=== PATIENT | male | born 1970 | race Caucasian/White ===

== ENCOUNTER 2022-08-31 01:16 | Emergency (ER) | payer MEDICAID ==
[2022-08-31] MEDS ORDERED: Sodium Chloride 0.9% 10 ML Syringe FLUSH PRN (01:46)
[2022-08-31] MEDS ORDERED: Ondansetron 4 MG/2 ML SDV IVPUSH ONE (01:46)
[2022-08-31 01:53] LABS: BASOPHILS ABSOLUTE AUTO 0.04 K/uL (0.00-0.10); BASOPHILS PERCENT AUTO 0.4 % (0.1-1.3); EOSINOPHILS ABSOLUTE AUTO 0.14 K/uL (0.00-0.40); EOSINOPHILS PERCENT AUTO 1.3 % (0.0-5.4); HEMATOCRIT 47.7 % (38.4-49.7); HEMOGLOBIN 16.6 g/dL (12.9-16.9); IMMATURE GRAN ABSOLUTE AUTO 0.04 K/uL (0.00-0.23); IMMATURE GRAN PERCENT AUTO 0.4 % (0.0-0.7); LYMPHOCYTES PERCENT AUTO 15.1 % (11.4-47.7); MEAN CORPUSCULAR HEMOGLOBIN 29.5 pg (31.6-35.5); MEAN CORPUSCULAR HGB CONC 34.8 g/dL (31.6-35.5); MEAN CORPUSCULAR VOLUME 84.9 fL (81.4-99.0); MONOCYTES ABSOLUTE AUTO 0.87 K/uL (0.20-0.90); MONOCYTES PERCENT AUTO 8.2 % (3.3-12.6); NEUTROPHILS ABSOLUTE AUTO 7.93 K/uL (1.0-7.6); NEUTROPHILS PERCENT AUTO 74.6 % (40.0-78.1); PLATELET COUNT,PLT 272 K/uL (130-375); RED BLOOD CELL COUNT 5.62 M/uL (4.14-5.76); WHITE BLOOD CELL COUNT,WBC 10.6 K/uL (3.2-11.0)
[2022-08-31] MEDS: Sodium Chloride 0.9% 1,000 ML IV SCH ×2 (01:55→03:02)
[2022-08-31 02:13] LABS: ALANINE AMINOTRANSFERASE,ALT 58 U/L (12-78); ALKALINE PHOSPHATASE 107 U/L (46-116); ASPARTATE AMNIOTRANSFERASE,AST 26 U/L (15-37); BILIRUBIN TOTAL 0.7 mg/dL (0.2-1.0); BLOOD UREA NITROGEN,BUN 19 mg/dL (7-18); C-REACTIVE PROTEIN 0.62 mg/dL (0.0-0.3); CALCIUM 9.9 mg/dL (8.5-10.1); CARBON DIOXIDE,CO2 25 mmol/L (21-32); CHLORIDE,CL 98 mmol/L (100-108); CREATININE 2.4 mg/dL (0.8-1.3); EST CRCL DRUG DOSING (CG) 39.52 mL/min; ESTIMATED GFR 32 mL/min (>60); GLUCOSE RANDOM 395 mg/dL (74-106); POTASSIUM,K 4.2 mmol/L (3.6-5.2); PROTEIN TOTAL,TP 8.2 g/dL (6.4-8.2); SODIUM,NA 132 mmol/L (140-148)
[2022-08-31 02:14] LABS: ANION GAP 13.2 mmol/L (5.0-14.0)
[2022-08-31 02:32] LABS: BASE EXCESS VENOUS -4.9 mm/L; BICARBONATE,VENOUS 22.3 mmol/L; CARBOXYHEMOGLOBIN 1.4 % (0.0-1.6); METHEMOGLOBIN 1.1 %; O2 SATURATION VENOUS 41.6; OXYHEMOGLOBIN 40.6 %; PCO2 VENOUS 50.7 mm/Hg; PH,VENOUS 7.265 (7.350-7.450); TOTAL HEMOGLOBIN 16.2 g/dL (13.5-18.0)
[2022-08-31 02:36] LABS: PO2 VENOUS 29.7 mm/Hg
[2022-08-31] MEDS ORDERED: Insulin Regular, Human 100 Units/ML 3 ML Vial IVPUSH ONE (02:55)
[2022-08-31] MEDS ORDERED: Glucagon,Human Recombinant 1 MG Vial IM PRN (02:55)
[2022-08-31] MEDS ORDERED: 50% Dextrose in Water 50 ML Syringe IVPUSH PRN (02:55)
[2022-08-31] MEDS ORDERED: Sodium Chloride 0.9% 1,000 ML IV SCH (03:00)
== END 2022-08-31 04:25 | disposition home or self-care (01) ==
LOC: JP.ED 01:16
DX: A08.4 Viral intestinal infection, unspecified (principal); E86.0 Dehydration; E11.65 Type 2 diabetes mellitus with hyperglycemia; N17.9 Acute kidney failure, unspecified; Z91.013 Allergy to seafood; Z91.048 Other nonmedicinal substance allergy status; Z88.8 Allergy status to other drugs, medicaments and biological substances; Z79.82 Long term (current) use of aspirin
CPT/HCPCS: 36415; 80053; 82009; 82803; 85025; 86140; 96361; 96374; 99284; J1815; J2405; J3490; J7030

== ENCOUNTER 2022-09-15 20:04 | Emergency (ER) | payer MEDICAID ==
[2022-09-15] MEDS ORDERED: methylPREDNISolone Sodium Succinate 125 MG/2 ML SDV IVPUSH ONE (20:13)
[2022-09-15] MEDS ORDERED: EPINEPHrine 1 MG/ML SDV IM ONE (20:13)
[2022-09-15] MEDS ORDERED: diphenhydrAMINE 50 MG/ML SDV IVPUSH ONE (20:13)
== END 2022-09-15 23:29 | disposition home or self-care (01) ==
LOC: JP.ED 20:04
DX: T63.441A Toxic effect of venom of bees, accidental (unintentional), initial encounter (principal); E11.9 Type 2 diabetes mellitus without complications; K21.9 Gastro-esophageal reflux disease without esophagitis; Z79.4 Long term (current) use of insulin; Z79.84 Long term (current) use of oral hypoglycemic drugs; Z79.899 Other long term (current) drug therapy; Z79.82 Long term (current) use of aspirin; Z91.013 Allergy to seafood; Z91.048 Other nonmedicinal substance allergy status
CPT/HCPCS: 96372; 96374; 96375; 99282; J0171; J1200; J2930

== ENCOUNTER 2022-12-13 20:58 | Emergency (ER) | payer MEDICAID | END 2022-12-13 23:48 | disposition home or self-care (01) | LOC: JP.ED 20:58 | DX: S90.822A Blister (nonthermal), left foot, initial encounter (principal); E11.9 Type 2 diabetes mellitus without complications; Z91.038 Other insect allergy status; Z91.013 Allergy to seafood; Z91.048 Other nonmedicinal substance allergy status; Z79.82 Long term (current) use of aspirin; Z79.899 Other long term (current) drug therapy; Z79.4 Long term (current) use of insulin; Z79.84 Long term (current) use of oral hypoglycemic drugs; X58.XXXA Exposure to other specified factors, initial encounter | CPT/HCPCS: 99282 ==

== ENCOUNTER 2023-12-19 09:22 | Emergency (ER) | payer MEDICARE, MEDICAID ==
[2023-12-19 10:34] LABS: BASOPHILS ABSOLUTE AUTO 0.03 K/uL (0.00-0.10); BASOPHILS PERCENT AUTO 0.4 % (0.1-1.3); EOSINOPHILS PERCENT AUTO 4.2 % (0.0-5.4); HEMOGLOBIN 14.7 g/dL (12.9-16.9); IMMATURE GRAN ABSOLUTE AUTO 0.02 K/uL (0.00-0.23); IMMATURE GRAN PERCENT AUTO 0.3 % (0.0-0.7); LYMPHOCYTES ABSOLUTE AUTO 1.71 K/uL (0.8-3.3); LYMPHOCYTES PERCENT AUTO 23.9 % (11.4-47.7); MEAN CORPUSCULAR HEMOGLOBIN 30.4 pg (31.6-35.5); MEAN CORPUSCULAR HGB CONC 34.2 g/dL (31.6-35.5); MONOCYTES ABSOLUTE AUTO 0.57 K/uL (0.20-0.90); NEUTROPHILS ABSOLUTE AUTO 4.51 K/uL (1.0-7.6); NEUTROPHILS PERCENT AUTO 63.2 % (40.0-78.1); PLATELET COUNT,PLT 199 K/uL (130-375); RED BLOOD CELL COUNT 4.83 M/uL (4.14-5.76); WHITE BLOOD CELL COUNT,WBC 7.1 K/uL (3.2-11.0)
[2023-12-19 10:51] LABS: ANION GAP 7.8 mmol/L (5.0-14.0); CALCIUM 9.5 mg/dL (8.5-10.1); CREATININE 1.1 mg/dL (0.8-1.3); EST CRCL DRUG DOSING (CG) 85.24 mL/min; POTASSIUM,K 4.3 mmol/L (3.6-5.2)
== END 2023-12-19 12:03 | disposition home or self-care (01) ==
LOC: JP.ED 09:22
DX: H53.143 Visual discomfort, bilateral (principal); I10 Essential (primary) hypertension; E78.00 Pure hypercholesterolemia, unspecified; K21.9 Gastro-esophageal reflux disease without esophagitis; E11.9 Type 2 diabetes mellitus without complications; Z79.899 Other long term (current) drug therapy; Z79.84 Long term (current) use of oral hypoglycemic drugs; Z79.4 Long term (current) use of insulin; Z79.82 Long term (current) use of aspirin; Z91.013 Allergy to seafood; Z91.038 Other insect allergy status; Z91.048 Other nonmedicinal substance allergy status; Z88.8 Allergy status to other drugs, medicaments and biological substances
CPT/HCPCS: 36415; 80048; 83605; 85025; 99284

== ENCOUNTER 2024-03-28 04:22 | Emergency (ER) | payer MEDICARE, MEDICAID ==
[2024-03-28] MEDS: Ketorolac 15 MG/ML SDV IVPUSH ONE (04:35)
[2024-03-28] MEDS: Ondansetron 4 MG/2 ML SDV IVPUSH ONE (04:35)
[2024-03-28] MEDS: Sodium Chloride 0.9% 1,000 ML IV ONE ×2 (04:36→06:02)
[2024-03-28 04:41] LABS: BASOPHILS PERCENT AUTO 0.2 % (0.1-1.3); EOSINOPHILS ABSOLUTE AUTO 0.12 K/uL (0.00-0.40); EOSINOPHILS PERCENT AUTO 1.4 % (0.0-5.4); HEMOGLOBIN 16.4 g/dL (12.9-16.9); IMMATURE GRAN ABSOLUTE AUTO 0.03 K/uL (0.00-0.23); IMMATURE GRAN PERCENT AUTO 0.4 % (0.0-0.7); LYMPHOCYTES ABSOLUTE AUTO 0.54 K/uL (0.8-3.3); LYMPHOCYTES PERCENT AUTO 6.4 % (11.4-47.7); MEAN CORPUSCULAR HGB CONC 34.2 g/dL (31.6-35.5); MONOCYTES ABSOLUTE AUTO 0.64 K/uL (0.20-0.90); MONOCYTES PERCENT AUTO 7.5 % (3.3-12.6); NEUTROPHILS ABSOLUTE AUTO 7.14 K/uL (1.0-7.6); NEUTROPHILS PERCENT AUTO 84.1 % (40.0-78.1); PLATELET COUNT,PLT 186 K/uL (130-375); RED BLOOD CELL COUNT 5.65 M/uL (4.14-5.76); WHITE BLOOD CELL COUNT,WBC 8.5 K/uL (3.2-11.0)
[2024-03-28 04:42] LABS: BASOPHILS ABSOLUTE AUTO 0.02 K/uL (0.00-0.10)
[2024-03-28 05:10] LABS: A/G RATIO 0.9 (1.2-2.2); ALANINE AMINOTRANSFERASE,ALT 56 U/L (12-78); ALBUMIN 3.7 g/dL (3.4-5.0); ALKALINE PHOSPHATASE 127 U/L (46-116); ANION GAP 13.4 mmol/L (5.0-14.0); ASPARTATE AMNIOTRANSFERASE,AST 29 U/L (15-37); BILIRUBIN TOTAL 0.6 mg/dL (0.2-1.0); BLOOD UREA NITROGEN,BUN 16 mg/dL (7-18); CARBON DIOXIDE,CO2 24 mmol/L (21-32); CHLORIDE,CL 103 mmol/L (100-108); CREATININE 1.4 mg/dL (0.8-1.3); EST CRCL DRUG DOSING (CG) 66.98 mL/min; ESTIMATED GFR 60 mL/min (>60); GLUCOSE RANDOM 384 mg/dL (74-106); POTASSIUM,K 4.2 mmol/L (3.6-5.2); PROTEIN TOTAL,TP 7.8 g/dL (6.4-8.2); SODIUM,NA 140 mmol/L (140-148)
[2024-03-28] MEDS: Sodium Chloride 0.9% 10 ML Syringe FLUSH PRN (05:28)
[2024-03-28] MEDS: Sodium Chloride 0.9% 100 ML IV SCH (05:28)
[2024-03-28] MEDS: Iopamidol 612 MG/ML 100 ML Bottle IV SCH (05:28)
[2024-03-28 07:46] LABS: APPEARANCE,URINE CLEAR (CLEAR); BILIRUBIN,URINE NEGATIVE (NEGATIVE); COLOR,URINE YELLOW (YELLOW); GLUCOSE,URINE 500 mg/dL (NEGATIVE); KETONES,URINE NEGATIVE (NEGATIVE); LEUKOCYTE ESTERASE,URINE NEGATIVE (NEGATIVE); NITRITE,URINE NEGATIVE (NEGATIVE); OCCULT BLOOD,URINE TRACE-INTACT (NEGATIVE); PH,URINE 5.5 (5.0-8.0); PROTEIN,URINE NEGATIVE (NEGATIVE); UROBILINOGEN,URINE 0.2 EU/dL (0.2-1.0)
[2024-03-28 08:06] LABS: RBC,URINE 0-5 (0-5)
[2024-03-28 08:07] LABS: AMORPHOUS SEDIMENT,URINE NOT SEEN; BACTERIA,URINE RARE; EPITHELIAL CELLS,URINE RARE; MUCUS,URINE FEW; WBC,URINE 0-5 (0-5)
== END 2024-03-28 09:19 | disposition home or self-care (01) ==
LOC: JP.ED 04:22
DX: R10.84 Generalized abdominal pain (principal); R11.2 Nausea with vomiting, unspecified; R19.7 Diarrhea, unspecified; E11.65 Type 2 diabetes mellitus with hyperglycemia; I10 Essential (primary) hypertension; J45.909 Unspecified asthma, uncomplicated; K21.9 Gastro-esophageal reflux disease without esophagitis; E78.00 Pure hypercholesterolemia, unspecified; Z79.899 Other long term (current) drug therapy; Z79.82 Long term (current) use of aspirin; Z79.84 Long term (current) use of oral hypoglycemic drugs; Z79.4 Long term (current) use of insulin; Z91.030 Bee allergy status; Z91.013 Allergy to seafood; Z91.048 Other nonmedicinal substance allergy status; Z88.8 Allergy status to other drugs, medicaments and biological substances
CPT/HCPCS: 36415; 74177; 80053; 81001; 83605; 85025; 96361; 96374; 96375; 99284; J1885; J2405; J7030; Q9967